=== PATIENT | male | born 1985 | race Caucasian/White ===

== ENCOUNTER 2025-03-20 14:44 | Emergency (ER) | payer OTHER, SELFPAY ==
[2025-03-20 14:57] VITALS: BP 157/88; PULSE 88; RESP 20; TEMP 36.6; O2SAT 100
--- NOTE | 2025-03-20 15:22 | ED.NAVMDI ---
HPI - Nausea/Vomiting/Diarrhea General Chief complaint: Nausea/Vomiting/Diarrhea Stated complaint: Vomiting/Diarrhea Time Seen by Provider: 03/20/25 15:22 Source: patient, RN notes reviewed and old records reviewed Mode of arrival: ambulatory Limitations: no limitations History of Present Illness HPI Narrative: 39-year-old male presents to [facility] with complaints of vomiting and diarrhea which started last night about 2200 WITH NO DIARRHEA SINCE 0400. Patient reports that his friend was ill with similar symptoms Patient reports no emesis since noon today and has drank some water since and has kept it down. Patient reports that he did do home COVID test which was negative. MD elicited complaint: nausea, vomiting, diarrhea and other (body aches.) Onset (ago): day(s) (yesterday at 2200) Description of vomiting: food contents and watery Description of diarrhea: watery Associated nausea: Yes Location of pain: other (across mid abdomen described as cramping) Severity: mild Treatment prior to arrival: none Related Data Allergies Allergy/AdvReac Type Severity Reaction Status Date / Time No Known Allergies Allergy Verified 03/20/25 15:05 Review of Systems Review of Systems: CONSTITUTIONAL: reports malaise, no chills, sweats, or fever. EYES: Denies visual changes, redness, or discharge. ENT: Reports rhinorrhea, congestion, sinus pain, otalgia and sore throat. CARDIOVASCULAR: Denies chest pain, palpitations, or edema. RESPIRATORY: Reports cough.? Denies dyspnea. GASTROINTESTINAL: abdominal pain across mid abdomen described as cramping + nausea, vomiting, diarrhea SKIN: Denies rash or itching. MUSCULOSKELETAL: reports myalgia. NEUROLOGIC: Denies headache. All systems reviewed & are unremarkable except as noted in HPI and below PMFSH Social History Social History (Updated 03/22/25 @ 08:57 by Ebonie Pena APRN) Smoking status: Never smoker Alcohol intake: current Alcohol use details: social Substance use type: does not use Gender identity (if verbalized by the patient): Male Comments At time of signature, agree with nursing past medical, surgical, social and family history. There is no relevant family history pertinent to the presenting complaint Exam Narrative: GENERAL: Well-appearing, well-nourished, and in no acute distress. HEAD: Normocephalic EYES: PERRLA, conjunctivae clear ENT: Nares clear, turbinates edematous and erythematous, clear discharge. Mucous membranes moist. TM pearly nelson with dull light reflex bilaterally; no tragal tenderness. Oropharynx erythematous without lesions. Tonsils not enlarged and without exudate, no drooling, no hoarseness, no trismus, uvula midline. NECK: Supple. No lymphadenopathy CHEST: Clear to auscultation, breath sounds equal. No wheezing, rhonchi, rales, or stridor. No respiratory distress, speaks in full sentences.SAo2 100% on room air Abdomen: soft nontender to palpation, no McBurney point tenderness, reports some mid abdomen cramping with episodes of diarrhea none since 399. some nausea and vomiting has kept some fluids down. HEART: Regular rate and rhythm. No murmur heard. SKIN: Warm, dry, no rash. NEURO: Alert and oriented x3. PSYCH: Normal mood and affect Course Course Level of Care: Express Care Visit Vital Signs Vital signs: Vital Signs Temperature 36.6 C 03/20/25 14:57 Pulse Rate 88 03/20/25 14:57 Respiratory Rate 20 03/20/25 14:57 Blood Pressure 157/88 H 03/20/25 14:57 Pulse Oximetry 100 03/20/25 14:57 Oxygen Delivery Room Air 03/20/25 14:57 Temperature 36.6 C 03/20/25 14:57 Pulse Rate 88 03/20/25 14:57 Respiratory Rate 20 03/20/25 14:57 Blood Pressure 157/88 H 03/20/25 14:57 Pulse Oximetry 100 03/20/25 14:57 Oxygen Delivery Room Air 03/20/25 14:57 reviewed [facility] Narrative Medical decision making narrative: Patient with diarrhea episodes with none since 399, nausea and vomiting and mid abdomen cramping tested negative for COVID per ome test and Influenza testing negative in clinic. recommended suportive measures with OTC medications and Rx for Zofran to patient;s pharmacy. Patient agrees with plan of care anticipatory guidance and reviwed reasons to seek care in ED reviewed with understanding voiced. Differential Diagnosis Differential Diagnosis: Differential diagnostic considerations for nausea/vomiting/diarrhea include gastroenteritis, appendicitis, IBD, intestinal obstruction, clostridium difficile, food poisoning, peritonitis, IBS, dehydration, ischemic bowel, ACS, pancreatitis, drug induced nausea/vomiting. Lab Data [facility] Lab Attestation statement: I personally reviewed the patient's lab results. Lab results narrative: Influenza A&B negative patient performed home COVID test which was negative. Labs: Lab Results 03/20/25 Range/Units 15:47 POC Influenza A Ag Negative (Negative) POC Influenza B Ag Negative (Negative) reviewed Critical Care Time Critical Care Time Critical Care Time: No Discharge Plan Discharge Clinical Impression: Gastroenteritis Patient Disposition: Home Condition: Stable Instructions: Antibiotic Form, Gastroenteritis (ED) Additional Instructions: Clear liquids for the next 8-10 hours, then advance to a bland diet as tolerated A bland diet can consist of--BRAT diet which is bananas, rice, applesauce, and toast Avoid fried, greasy, fatty, fried foods Avoid caffeine, nicotine, and alcohol Return to your regular diet in the next 3-4 days Medication as directed for nausea and vomiting Sometimes ibuprofen/Aleve can cause increased stomach upset [id number] Imodium if develop diarrhea Follow-up with her PCP if continued problems or uncontrolled pain If your symptoms persist, change or worsen significantly before you can contact your personal physician then please, without delay, go to the emergency department for further evaluation. Follow-up with PCP in 7-10 days or sooner if needed Follow up with PCP soon in regards to your blood pressure which is elevated above threshold for referral. Blood pressure above 120/80 may indicate pre-hypertension. 157/88 You tested negative for influenza Patient Language: Ukrainian Prescriptions: New ondansetron 4 mg tablet,disintegrating 4 mg PO Q6H PRN (Reason: nausea and vomiting) Qty: 14 0RF Rx Instructions: whatever preparation is covered by insurance Follow-up/Referrals: Jalen,Vianey Bhardwaj APN [Primary Care Provider, Unknown] Time of Disposition: 15:52 Quality [place] Coma Scale Eyes: Open Verbal: Oriented and Alert Motor: Follows Commands [place] Coma Total Score: 15
[2025-03-20 15:49] LABS: EDINFLUASCREEN Negative (Negative); EDINFLUBSCREEN Negative (Negative)
== END 2025-03-20 15:53 | disposition home or self-care (01) ==
PROVIDERS: Emergency Provider Registered Nurse; PCP Nurse Practitioner Family
DX: K52.9 Noninfective gastroenteritis and colitis, unspecified (principal)
CPT/HCPCS: 87804; 99203; G0463